=== PATIENT | female | born 1985 | race Caucasian/White ===

== ENCOUNTER 2018-04-30 12:20 | Inpatient (IN) | payer OTHER ==
[2018-04-30] MEDS ORDERED: EPSOM SALT 454 GM TP PRN (13:10)
[2018-04-30] MEDS ORDERED: LIDOCAINE 1% 300 MG/30 ML SDV SC PRN (13:10)
[2018-04-30] MEDS ORDERED: MISOPROSTOL 200 MCG TAB PR PRN (13:10)
[2018-04-30] MEDS ORDERED: IBUPROFEN 600 MG TAB PO PRN (13:10)
[2018-04-30] MEDS ORDERED: LR 1,000 ML IV PRN (13:10)
[2018-04-30] MEDS ORDERED: OLIVE OIL 118 ML BTL MISC PRN (13:10)
[2018-04-30] MEDS ORDERED: TERBUTALINE SULFATE 1 MG/ML VIAL IV PRN (13:10)
[2018-04-30] MEDS ORDERED: OXYTOCIN/RINGERS LACTATE 1,000 ML IV PRN (13:10)
--- NOTE | 2018-04-30 13:25 | PDGENHP ---
History and Physical - Chief Complaint SROM, early labor - History of Present Illness 32 yo today at 39w5d by LMP cw first tri US - who called the clinic this AM with gross ROM. GBS negative, at that time only having irregular ctx's. H/o term no particular complications with that delivery. 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 Did consult with M on this. First baby girl JD was [id number] at 39 wks. History Information - Allergies/Home Medication List Allergies/Adverse Reactions: No Known Allergies Allergy (Unverified 02/18/16 15:21) Home Medications: Dha 02/18/16 [Last Taken 04/30/18 08:00] I have personally reviewed and updated: family history, medical history, social history, surgical history Past Medical History: Hypothyroid, Facor V hetero, pos Anti-little C antibody - Surgical History Reports: no pertinent surgical hx - Social History Smoking Status: Never smoked Review of Systems Review of Systems: ROS: 10pt was reviewed & negative except for what was stated in HPI & below Physical Exam Physical Exam: Appears uncomfortable in early labor. Belly gravid. SCE by admitting RN 3-4cm, soft, grossly ruptured. Lab Data & Imaging Review 04/30/18 14:03 Laboratory Tests 11/02/14 09/24/17 10/08/17 13:40 Unknown 17:00 Factor V Leiden Mutat Heterozygous H Factor V Leiden Interp See Comments Fact V Leiden Review By Layo Aguilar M.D. Gestat Glucose Screen Thyroperoxidase Ab 0.7 Thyroglobulin Ab Screen <1.8 RPR C.trachomatis RNA (TMA) NEGATIVE Hep Bs Antigen NEGATIVE HIV 1&2 Antibody NEGATIVE N.gonorrhoeae RNA (TMA) NEGATIVE Parvovirus B19 IgG Ab Parvovirus B19 IgM Ab Parvovirus Interpret Rubella IgG Antibody 254.00 Group B Strep DNA MTHFR C677T Mutation Negative 10/08/17 10/08/17 02/04/18 17:00 17:00 12:10 Factor V Leiden Mutat Factor V Leiden Interp Fact V Leiden Review By Gestat Glucose Screen 96 Thyroperoxidase Ab Thyroglobulin Ab Screen RPR NONREACTIVE C.trachomatis RNA (TMA) Hep Bs Antigen HIV 1&2 Antibody N.gonorrhoeae RNA (TMA) Parvovirus B19 IgG Ab NEGATIVE Parvovirus B19 IgM Ab NEGATIVE Parvovirus Interpret See Comments Rubella IgG Antibody Group B Strep DNA MTHFR C677T Mutation 04/01/18 09:00 Factor V Leiden Mutat Factor V Leiden Interp Fact V Leiden Review By Gestat Glucose Screen Thyroperoxidase Ab Thyroglobulin Ab Screen RPR C.trachomatis RNA (TMA) Hep Bs Antigen HIV 1&2 Antibody N.gonorrhoeae RNA (TMA) Parvovirus B19 IgG Ab Parvovirus B19 IgM Ab Parvovirus Interpret Rubella IgG Antibody Group B Strep DNA NEGATIVE MTHFR C677T Mutation Assessment & Plan Assessment: 32 yo at 39w5d presents with SROM now 4cm in early labor. - Will run screen and titer again now on admission. - Otherwise routine orders, would like to try tub and nitrous oxide for pain. - OK with intermittent EFM if initial tracing is reassuring. - O pos, GBS NEGATIVE, Rubella immune. - Hypothyroid - Will need PP TSH check. DESHAUN
[2018-04-30] MEDS ORDERED: TERBUTALINE SULFATE 1 MG/ML VIAL ONE (13:59)
[2018-04-30] MEDS ORDERED: AMMONIA AROMATIC 1 EACH AMP IH ONE (13:59)
[2018-04-30] MEDS ORDERED: OXYTOCIN 10 UNIT/ML VIAL ONE (13:59)
[2018-04-30] MEDS ORDERED: OLIVE OIL 118 ML BTL ONE (13:59)
[2018-04-30] MEDS ORDERED: MISOPROSTOL 200 MCG TAB ONE (13:59)
[2018-04-30] MEDS ORDERED: LIDOCAINE 1% 300 MG/30 ML SDV ONE (13:59)
[2018-04-30 14:18] LABS: PLATELET COUNT 177 10^3/uL (150-400)
[2018-04-30] MEDS ORDERED: NALOXONE HCL 0.4 MG/ML INJ IVP PRN (16:22)
[2018-04-30] MEDS ORDERED: PHENYLEPHRINE HCL 100 MCG/ML SYR IVP PRN (16:22)
[2018-04-30] MEDS ORDERED: ONDANSETRON 4 MG/2 ML VIAL IVP PRN (16:22)
[2018-04-30] MEDS ORDERED: LR 500 ML IV SCH (16:30)
[2018-04-30] MEDS ORDERED: fentaNYL 200 MCG, BUPIVACAINE 0.5% 20 ML in NS 100 ML EP SCH (16:30)
[2018-04-30] MEDS ORDERED: fentaNYL 2MCG/ML/BUP 0.1% RTU 100 ML EP SCH (16:30)
[2018-04-30] MEDS ORDERED: PHENYLEPHRINE HCL 100 MCG/ML SYR ONE (16:32)
[2018-04-30] MEDS ORDERED: BUPIVACAINE 0.25% 30 ML SDV ONE (16:32)
[2018-04-30] MEDS ORDERED: fentaNYL 100 MCG/2 ML INJ ONE (16:33)
--- NOTE | 2018-04-30 17:23 | PDANEPAE ---
ANE History of Present Illness 39 wk IUP ANE Past Medical History Past Medical History: Factor 5 Leiden, no hx thrombosis, NKDA, PNV - Pulmonary History Hx Sleep Apnea: No - Surgical History Prior Surgeries: labor epidural, dental ANE Review of Systems Review of Systems: factor 5 leiden ANE Patient History - Allergies Allergies/Adverse Reactions: No Known Allergies Allergy (Unverified 02/18/16 15:21) - Home Medications Home Medications: Dha 02/18/16 [Last Taken 04/30/18 08:00] - Anes Hx Anes Hx: no prior problems - Smoking Hx Smoking Status: Never smoked - Alcohol Use Alcohol Use: None - Family Anes Hx Family Anes Hx: neg - N/A ANE Labs/Vital Signs - Labs Result Diagrams: 04/30/18 14:03 - Vital Signs Height: 162.56 cm Weight: 71.668 kg ANE Physical Exam - Airway Neck exam: FROM Mallampati Score: Class 2 Mouth exam: normal dental/mouth exam - Pulmonary Pulmonary: no respiratory distress - Cardiovascular Cardiovascular: regular rate and rhythym - ASA Status ASA Status: II ANE Anesthesia Plan Anesthesia Plan: epidural Urgent/Emergent Case: Anes eval completed preop but documented later for safe timely pt care
--- NOTE | 2018-04-30 17:25 | POSTANESTH ---
Post Anesthetic Evaluation Cardiovascular Status: Normal, Stable Respiratory Status: Normal, Stable Level of Consciousness/Mental Status: Can Participate in Eval Pain Control: Adequate, Prn Tx Ordered Nausea/Vomiting Control: Adequate, Prn Tx Ordered Complications Possibly Related to Anesthesia: None Noted (uneventful placement of labor epidural. good pain relief. stable vs. motor intact.)
--- NOTE | 2018-04-30 18:14 | OBDEL ---
Info Type: Vaginal Presentation at Delivery: Vertex L&D Analgesia/Anesthesia Type: Epidural, Nitrous GBS+: No - Hospital Course Intrapartum: 04/30/18 18:10 Presented in spontaneous early labor after gross rupture. Got in the tub, then nitrous, then epidural. Reassuring FHR throughout. Indications for Delivery: Spontaneous Labor, SROM Vaginal Delivery - Delivery Provider Delivery Physician/CNM: Cl Franks - Labor and Delivery Onset of Contractions Date: 04/30/18 Onset of Contractions Time: 11:00 Onset of Contractions Type: Spontaneous Rupture of Membranes Date: 04/30/18 Rupture of Membranes Time: 10:00 Rupture of Membranes Type: Premature (PROM at 39w5d, ctx's started soon after) Amniotic Fluid Color: Clear Dilation Complete Date: 04/30/18 Dilation Complete Time: 17:18 Placenta Delivery Date: 04/30/18 Placenta Delivery Time: 17:53 Total Hours of Labor: 6 Laceration: 1st Degree Repair: 3-0 (Short running locked) Vaginal Sponge Count Correct: Yes Vaginal Needle Count Correct: Yes Vaginal Sweep Performed: Yes EBL: 300cc Delivery Events: Nuchal Cord (x1, easily reduced) Cord Gases: Not sent - Medications Labor Augmentation/Induction Methods Used: None Leeper Data GUERA: 05/02/18 Gestational Age: 39 week(s) and 5 day(s) Narayan Delivery Date: 04/30/18 Delivery Time: 17:48 Sex of Infant: Female ([place]) Score (1 Min): 8 Score (5 Min): 8 Shoulder Dystocia Time Head Delivered: 17:48 Time Body Delivered: 17:48 Dystocia Comment: None ICD10 Worksheet Patient Problems: Problems Problem Status Onset Abnormal antibody titer Acute (spontaneous vaginal delivery) Acute Labor established Acute - ICD10 Problem Qualifiers (1) Abnormal antibody titer (2) (spontaneous vaginal delivery)
--- NOTE | 2018-04-30 18:19 | POSTANESTH ---
Post Anesthetic Evaluation Cardiovascular Status: Normal, Stable Respiratory Status: Normal, Stable Level of Consciousness/Mental Status: Can Participate in Eval Pain Control: Adequate, Prn Tx Ordered Nausea/Vomiting Control: Adequate, Prn Tx Ordered Complications Possibly Related to Anesthesia: None Noted (uneventful delivery, comfortable)
[2018-04-30] MEDS ORDERED: HYDROCODONE/APAP 5/325 TAB PO PRN (18:24)
[2018-04-30] MEDS ORDERED: DOCUSATE SODIUM 100 MG CAP PO PRN (18:24)
[2018-04-30] MEDS ORDERED: ACETAMINOPHEN 325 MG TAB PO PRN (18:24)
[2018-04-30] MEDS ORDERED: SIMETHICONE 80 MG TAB CHEW PO PRN (18:24)
[2018-04-30] MEDS ORDERED: HYDROCORTISONE 0.5% CREAM TP PRN (18:24)
--- NOTE | 2018-04-30 20:32 | PDMN ---
Medical Necessity Medical necessity: C/M review: Patient meets INPT criteria under [facility] [id number] Vaginal delivery: viable female . MD anticipates > 2 MN LOS for ongoing med nec for eval and TX of above.
[2018-04-30 23:41] VITALS: BP 91/65
[2018-05-01] MEDS: IBUPROFEN 600 MG TAB PO PRN ×3 (01:58→16:59)
--- NOTE | 2018-05-01 10:53 | OBGCSDC ---
General Delivery Information - General Info : 2 Para: 2 Abortions: 0 Type: Vaginal L&D Analgesia/Anesthesia Type: Epidural Admission Date: 04/30/18 Labs: Patient ABO/Rh O POSITIVE 04/30/18 14:03 Hct 37.5 % (38.0-47.0) L 05/01/18 06:25 - Hospital Course Intrapartum: 04/30/18 18:10 Presented in spontaneous early labor after gross rupture. Got in the tub, then nitrous, then epidural. Reassuring FHR throughout. : 05/01/18 10:52 S) Pt doing well, reports min pain and bleeding. she is ambulating and voiding without difficulty. She is . She desires discharge home today. O) VSS, afebrile constitutional: WNWF, A&Ox3 HEENT: normocephalic, atraumatic, supple Heart: RRR, No murmur Chest: CTA-B Abdomen: Soft, nontender Uterus: Firm at U-2 Lochia: Minimal rubra Perineum: healing well Extremities: Trace edema, and negative Zoila's sign Neuro: Grossly normal A) 33-year-old S/P PPD#1 P) Discharge home today Continue Pelvic rest x6wks Discussed danger signs (infection, preeclampsia, depression, heavy bleeding, etc ) RTO in 4/6 weeks Vaginal - Delivery Provider Delivery Physician/CNM: Cl Franks - Diagnosis Labor: Spontaneous Rupture of Membranes Type: Premature (PROM at 39w5d, ctx's started soon after) Amniotic Fluid Color: Clear Laceration: 1st Degree Repair: 3-0 (Short running locked) Delivery Events: Nuchal Cord (x1, easily reduced) - Delivery EBL: 300cc Melvin Data GUERA: 05/02/18 Gestational Age: 39 week(s) and 6 day(s) Narayan Delivery Date: 04/30/18 Delivery Time: 17:48 Sex of : Female Melvin Weight (gm): 3344 g Score (1 Min): 8 Score (5 Min): 8
== END 2018-05-01 18:10 | disposition home or self-care (01) | DRG 775 ==
LOC: FLD 12:20 → FOB 21:02
PROVIDERS: ADMIT Obstetrics & Gynecology; ATTEND Obstetrics & Gynecology
PROC: 10E0XZZ Delivery of Products of Conception, External Approach (ICD-10-PCS; principal; 2018-04-30)
PROC: 0HQ9XZZ Repair Perineum Skin, External Approach (ICD-10-PCS; principal; 2018-04-30)
DX: O70.0 First degree perineal laceration during delivery (principal); O69.81X0 Labor and delivery complicated by cord around neck, without compression, not applicable or unspecified; Z3A.39 39 weeks gestation of pregnancy; Z37.0 Single live birth
CPT/HCPCS: J2370; J2590; J3010; J3105